=== PATIENT | female | born 1985 | race American Indian/Alaskan Native ===

== ENCOUNTER 2016-10-07 14:11 | Inpatient (IN) | payer MEDICAID ==
[2016-10-07 14:13] VITALS: RESP 18
[2016-10-07 14:14] VITALS: BMI 24.2
--- NOTE | 2016-10-07 14:45 | ED PDOC ---
Psych Transfer Clearance - Clearance Statement Clearance Statement: Reviewed vital signs, lab results and transfer papers. Patient clinically stable for psychiatric admission.
[2016-10-07] MEDS ORDERED: DiphenhydrAMINE 50 mg/ml Inj IM PRN (16:15)
[2016-10-07] MEDS: Risperidone M tab 1 MG PO SCH (22:36)
[2016-10-07 22:37] VITALS: O2SAT 99
[2016-10-08 07:21] LABS: BASO % 0.5 % (0.0-2.0); EOS # 0.2 K/uL (0.0-0.7); EOS % 4.8 % (0.0-4.0); HEMATOCRIT 36.1 % (34.0-47.0); LYMPH # 1.4 K/uL (1.0-4.3); LYMPH % 33.1 % (20.0-40.0); MEAN CELL VOLUME 83.6 fl (81.0-99.0); MEAN CORPUSCULAR HEMOGLOBIN 27.5 pg (27.0-31.0); MEAN CORPUSCULAR HGB CONC 32.9 g/dL (33.0-37.0); MEAN PLATELET VOLUME 7.3 fl (7.2-11.7); MONO # 0.3 K/uL (0.0-0.8); MONO % 8.2 % (0.0-10.0); NEUT # 2.2 K/uL (1.8-7.0); NEUT % 53.4 % (50.0-75.0); NRBC % 0.1 % (0.0-0.0); RED CELL DISTRIBUTION WIDTH 16.5 % (11.5-14.5); WHITE BLOOD COUNT 4.2 K/uL (4.8-10.8)
[2016-10-08 07:44] LABS: ALB/GLOB RATIO 1.1 (1.0-2.1); ALKALINE PHOSPHATASE 48 U/L (38-126); ALT/SGPT 25 U/L (9-52); AST/SGOT 19 U/L (14-36); BILIRUBIN,TOTAL 0.2 mg/dl (0.2-1.3); BLOOD UREA NITROGEN 16 mg/dl (7-17); CALCIUM 9.3 mg/dL (8.4-10.2); CARBON DIOXIDE 25 mmol/L (22-30); CHLORIDE 105 mmol/L (98-107); CHOLESTEROL 114 mg/dL (0-199); GFR AFRICAN-AMERICAN > 60; GLUCOSE,RANDOM 84 mg/dL (65-105); POTASSIUM 4.3 MMOL/L (3.6-5.0); SODIUM 138 mmol/l (132-148); TOTAL PROTEIN 6.7 G/DL (6.3-8.2)
[2016-10-08 07:59] LABS: T4 8.34 ug/dl (5.5-11.0)
[2016-10-08 08:12] LABS: THYROID STIMULATING HORMONE 0.31 mIU/ML (0.46-4.68)
--- NOTE | 2016-10-08 11:57 | PCM.PSYCH ---
Initial Psychiatric Evaluation - Initial Psychiatric Evaluation Type of Admission: Voluntary Legal Status: Capacity Chief Complaint (in patient's own words): i was just really upset Patient's Reaction to Hospitalization: cooperative currently History of Present Illness and Precipitating Events: 31 yo female, homeless for last two years and from [facility]. pt was discharged from [facility] psych unit last week. pt represented to the ER on numerous occassions. she states "i lied because someone told me that if i said i was suicidal they couldn't send me out." she states "i just needed some sleep , to get off the street." she denies that she has never been dx with a mental illness. she reports that she smokes marijuana, but is not using other drugs. her uds is positive for cannabinoids. At the [facility] ER she was complaining of auditory/visual halluciantions and parnaoid thoughts. pt apparently signed to come to [facility] as a voluntary pt, but upon arrival to this facility was agitated, paranoid, refusing to sign into the hospital. she was verbally threatening staff/peers and placed on a 1:1 supervision. she was given haldol and ativan by mouth, started on risperdal at night. she was able to sleep and states the risperdal helped her "feel calm..think clear for the first time in a while" she was calm, pleasant and cooperative in the treatment team and was stating that she wanted help with "getting off the streets." she has three children and there is an open dyfs case. she has no income, no supports. Current Medications: Active Medications Generic Name Dose Route Start Last Admin Trade Name Freq PRN Reason Stop Dose Admin Diphenhydramine HCl 50 mg 10/07/16 16:15 Benadryl IM Q6 PRN Extrapyramidal S/S Unable PO Diphenhydramine HCl 50 mg 10/07/16 16:26 10/07/16 16:31 Benadryl PO 50 mg Q6 PRN Administration s/s dystonic reaction Haloperidol 5 mg 10/07/16 16:22 10/07/16 16:31 Haldol PO 5 mg Q4 PRN Administration Agitation Haloperidol Lactate 5 mg 10/07/16 16:05 Haldol IM Q6 PRN Agitation Lorazepam 2 mg 10/07/16 16:09 Ativan IM Q4 PRN Anxiety Lorazepam 2 mg 10/07/16 16:21 10/07/16 16:31 Ativan PO 2 mg Q4 PRN Administration anxiety /agitaion Lorazepam 2 mg 10/07/16 16:25 Ativan PO Q4 PRN Anxiety/agitation Risperidone 1 mg 10/07/16 22:00 10/07/16 22:36 Risperdal M-Tab PO Not Given HS LETTY Past Psychiatric History - Past Psychiatric History Previous Treatment History: Inpatient Prior Professional Help: [facility] History of Abuse: denies History of ETOH/Drug Use: states she smokes marijuana regularly History of Family Illness: states her father had addiction problems Pertinent Medical Hx (Current Medical&Sleep Prob, Allergies): Allergies Allergy/AdvReac Type Severity Reaction Status Date / Time apple Allergy SWELLING Verified 10/07/16 18:21 pollen extracts Allergy CONGESTION Verified 10/07/16 18:23 denies medical issues Review of Systems - Psychiatric Psychiatric: As Per [facility] Mental Status Examination - Personal Presentation Personal Presentation: Looks stated age - Affect Affect: Broad - Motor Activity Motor Activity: Calm - Reliability in Providing Information Reliability in Providing Information: Fair - Speech Speech: Organized - Mood Mood: Depressed - Formal Thought Process Formal Thought Process: No Impairment Additional comments: at this time she is denying any a/v hallucinations or delusional thinking - Hallucinations/Delusions Hallucinations: Visual - Obsessions/Compulsions Obsessions: No Compulsions: No - Cognitive Functions Orientation: Person, Place, Situation, Time Sensorium: Alert Attention/Concentration: Attentive Abstract Thinking: [place] Estimate of Intelligence: Below average Judgement: Intact, as evidence by: Insight regarding need for hospitalization Memory: Remote intact, as evidenced by: Abilit to recall sig. life events - Risk Risk: Suicidal (has reported recent thoughts, but stated she was lying. no attempts, in intent, no thoughts) - Strength & Assets Inventory Strength & Assets Inventory: Intelligence - Limitations Limitations: Other (homeless) DSM 5 DX - DSM 5 DSM 5 Diagnosis: mood disorder unspecified r/o bipolar disorder - Recommended/Plan of Treatment Treatment Recommendations and Plan of Treatment: admit to [facility] for safety and observation gather collateral information provide supportive therapy adjust medications- will continue with the risperdal that was started last night as pt finds it is helpful and agrees to continue encourage participation in groups disposition planning Projected ELOS: 2 days Prognosis: fair - Smoking Cessation Smoking Cessation Initiated: No Reason for not providing: declines
[2016-10-08] MEDS: Risperidone M tab 1 MG PO SCH (21:25)
[2016-10-09 09:12] VITALS: BP 120/75; PULSE 79; TEMP 97.5
--- NOTE | 2016-10-09 09:30 | PCM.PYCHDC ---
Mental Status Examination - Mental Status Examination Orientation: Person, Place, Situation, Time Memory: Intact Mood: Neutral Affect: Broad Attention: WNL Concentration: WNL Association: WNL Fund of Knowledge: WNL Formal Thought Process: No Impairment Description of patient's judgement and insight: fair Psychotic Thoughts and Behaviors: denies current a/v hallucinations Suicidal Ideation: No Current Homicidal Ideation?: No Plan: pt denies any suicidal or homicidal thoughts/plans or intent Discharge Summary - Discharge Note Reason for Hospitalization: pt was reporting psychotic/mood symptoms with suicidal thoughts when in the ER at [facility]. Laboratory Data: Abnormal Lab Results 10/08/16 10/08/16 06:39 06:39 Hemoglobin A1c 5.4 RPR Nonreactive Consultations:: List each consultation separately and include: 1. Reason for request. 2. Findings. 3. Follow-up Consultations: seen by the hospitalist Summary of Hospital Course include:: 1. Description of specific treatment plan utilized for patients during their course of treatmen. 2. Summarize the time- course for resolution of acute symptoms and/or regressed behaviors. 3. Describe issues identified and worked on during hospitalization. 4. Describe medication utilized. 5. Describe medical problems identified and treated. 6. Reassessment of suicide risk Summary of Hospital Course: 31 yo female, homeless for last two years and from [facility]. [facility]. pt represented to the ER on numerous occassions. she states "i lied because someone told me that if i said i was suicidal they couldn't send me out." she states "i just needed some sleep , to get off the street." she denies that she has never been dx with a mental illness. she reports that she smokes marijuana, but is not using other drugs. her uds is positive for cannabinoids. At the [facility] ER she was complaining of auditory/visual halluciantions and parnaoid thoughts. pt apparently signed to come to [facility] as a voluntary pt, but upon arrival to this facility was agitated, paranoid, refusing to sign into the hospital. she was verbally threatening staff/peers and placed on a 1:1 supervision. she was given haldol and ativan by mouth, started on risperdal at night. she was able to sleep and states the risperdal helped her "feel calm..think clear for the first time in a while" she was calm, pleasant and cooperative in the treatment team and was stating that she wanted help with "getting off the streets." she has three children and there is an open dyfs case. she has no income, no supports. PT WAS ADMITTED TO [facility] AND ORIENTED TO THE UNIT. PT WAS PLACED ON 1:1 OBSERVATION SHE WAS AGITATED, LOUD, THREATENING AND AGGRESSIVE UPON ADMISSION. SHE INITIALLY REFUSED TO ENGAGE IN TREATMENT. SHE DID TAKE MEDICATIONS AND WAS ABLE TO SLEEP. SHE MEET WITH THE TREATMENT TEAM THE MORNING AFTER ADMISSION AND ADMITTED TO [facility] IN ORDER TO OBTAIN ADMISSION TO THE MEDICAL CENTER. SHE DID FEEL THE RISPERDAL "HELPED ME KEEP CALM" SHE AGREED TO STAY THE NIGHT AND ALLOW THE TREATMENT TEAM TO [facility] IN [facility] PT FELT SHE NEEDED TO MOVE AWAY FROM [facility]. SHE WAS CALM AND COOPERATIVE. SHE SLEPT WELL. SHE WAS DENYING ANY MEDICATION SIDE EFFECTS. AT THE TIME OF DISCHARGE SHE DENYING ANY SUICIDAL OR HOMICIDAL THOUGHTS. - Final Diagnosis (DSM 5) Condition upon Discharge: FAIR DSM 5: MOOD DISORDER, UNSPECIFIED Disposition: HOME/ ROUTINE Follow-up Treatment Plan: FOLLOW UP WITH AFTERCARE DIRECTED TAKE MEDICATIONS PRESCRIBED DO NOT USE ALCOHOL, TOBACCO OR OTHER ILLICIT SUBSTANCES CALL 911 IF ANY SUICIDAL OR HOMICIDAL THOUGHTS Prescriptions/Medication Reconciliation: Risperidone [Risperdal] 1 mg PO HS #15 tablet - Smoking Cessation Smoking Cessation Medication prescribed: No Reason for not providing: DECLINES - Antipsychotic Medications Pt discharged on 2 or more routine antipsychotic medications: No
== END 2016-10-09 11:40 | disposition home or self-care (01) | DRG 430 ==
LOC: H.ER 14:11 → H.PSYCH 14:46
PROVIDERS: ADMIT Psychiatry & Neurology Psychiatry; ATTEND Psychiatry & Neurology Psychiatry
PROC: GZHZZZZ Group Psychotherapy (ICD-10-PCS; principal; 2016-10-07)
PROC: GZ58ZZZ Individual Psychotherapy, Cognitive-Behavioral (ICD-10-PCS; 2016-10-07)
DX: F39 Unspecified mood [affective] disorder (principal); F12.90 Cannabis use, unspecified, uncomplicated; Z59.0 Homelessness